=== PATIENT | female | born 1990 | race African-American/Black ===

== ENCOUNTER 2018-01-30 15:32 | Emergency (ER) | payer OTHER ==
[~2018-01-30] VITALS: Ht 170.2 cm; Wt 54.4 kg
[~2018-01-30 15:32] MED LIST: AMOX500C PO
[2018-01-30 15:54] VITALS: BP 130/61
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
== END 2018-01-30 17:23 | disposition home or self-care (01) ==
LOC: ER 15:32
DX: S90.32XA Contusion of left foot, initial encounter (principal); Z88.6 Allergy status to analgesic agent; V03.90XA Pedestrian on foot injured in collision with car, pick-up truck or van, unspecified whether traffic or nontraffic accident, initial encounter; Y93.89 Activity, other specified; Y92.488 Other paved roadways as the place of occurrence of the external cause; Y99.8 Other external cause status
CPT/HCPCS: 73630; 99283

== ENCOUNTER 2019-02-02 19:39 | Emergency (ER) | payer SELFPAY ==
[~2019-02-02] VITALS: Ht 162.6 cm; Wt 54.4 kg
[2019-02-02] MEDS ORDERED: hydrOXYzine 25 MG TABLET PO ONE (20:00)
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
[2019-02-02] MEDS ORDERED: FAMOTIDINE 20 MG TABLET. PO ONE (21:15)
[2019-02-02] MEDS ORDERED: diphenhydrAMINE HCL 25 MG CAPSULE PO ONE (21:15)
[2019-02-02] MEDS ORDERED: predniSONE 20 MG TABLET PO ONE (21:15)
[2019-02-02] MEDS ORDERED: METH4TAB2 PO (22:13)
[2019-02-02 22:14] VITALS: BP 121/75
== END 2019-02-02 22:30 | disposition home or self-care (01) ==
LOC: ER 19:39
DX: L29.8 Other pruritus (principal); T39.1X5A Adverse effect of 4-Aminophenol derivatives, initial encounter; Y92.89 Other specified places as the place of occurrence of the external cause; Z88.6 Allergy status to analgesic agent
CPT/HCPCS: 99284; J7512; Q0163

== ENCOUNTER 2019-11-13 11:21 | Emergency (ER) | payer SELFPAY ==
[~2019-11-13] VITALS: Ht 170.2 cm; Wt 46.3 kg
[~2019-11-13 11:21] MED LIST changes: +METH4TAB2 PO
[2019-11-13 11:24] VITALS: BP 130/75
[2019-11-13] MEDS ORDERED: DICL50TA2 PO (11:39)
[2019-11-13] MEDS ORDERED: AMOX500T PO (11:39)
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
== END 2019-11-13 11:44 | disposition home or self-care (01) ==
LOC: ER 11:21
DX: K04.7 Periapical abscess without sinus (principal); K08.89 Other specified disorders of teeth and supporting structures; L53.9 Erythematous condition, unspecified; Z88.8 Allergy status to other drugs, medicaments and biological substances
CPT/HCPCS: 99283